=== PATIENT | female | born 1990 | race Two or more races ===

== ENCOUNTER 2018-01-31 14:04 | Emergency (ER) | payer OTHER ==
[~2018-01-31] VITALS: Ht 165.1 cm; Wt 63.0 kg
[2018-01-31] MEDS ORDERED: ACETAMINOPHEN ES 500 MG TABLET PO ONE (16:00)
[2018-01-31] MEDS ORDERED: ALBUTEROL FS 2.5 MG/3 ML VIAL.NEB NEB ONE (16:00)
[2018-01-31] MEDS ORDERED: IPRATROPIUM NEB FS 0.5 MG/2.5 ML AMPUL.NEB NEB ONE (16:00)
[2018-01-31] MEDS ORDERED: IV NS 0.9% 1,000 ML BAG IV ONE (16:00)
[2018-01-31] MEDS ORDERED: ONDANSETRON HCL/PF 4 MG/2 ML VIAL IV ONE (16:30)
[2018-01-31] MEDS ORDERED: ALBUTEROL FS 2.5 MG/3 ML VIAL.NEB ONE (17:10)
[2018-01-31] MEDS ORDERED: IPRATROPIUM NEB FS 0.5 MG/2.5 ML AMPUL.NEB ONE (17:10)
[2018-01-31] MEDS ORDERED: ONDANSETRON HCL/PF 4 MG/2 ML VIAL ONE (17:43)
[2018-01-31] MEDS ORDERED: ACETAMINOPHEN ES 500 MG TABLET ONE (17:43)
--- NOTE | 2018-01-31 17:56 | NUR ---
27 Y/O FEMALE PLACED IN BED 4 C/O BODY ACHES. BREATING TREATMENT INITIATED. H/L 22G PLACED IN LEFT HAND. IVF STARTED. ZOFRAN AND TYLENOL GIVEN. CONTINUE TO MONITOR.
--- NOTE | 2018-01-31 18:51 | NUR ---
DX - INFLUENZA. ACI WITH RX GIVEN. PT DISCHARGED HOME TO FOLLOW UP WITH PMD.
[2018-01-31 18:53] VITALS: BP 104/72
== END 2018-01-31 18:55 | disposition home or self-care (01) ==
LOC: ER 14:05
DX: B34.9 Viral infection, unspecified (principal); E03.9 Hypothyroidism, unspecified
CPT/HCPCS: 94640; 96374; 99284; A4606; J2405; Z7610

== ENCOUNTER 2018-07-25 13:11 | Emergency (ER) | payer OTHER ==
[~2018-07-25] VITALS: Ht 167.6 cm; Wt 63.5 kg
--- NOTE | 2018-07-25 13:18 | NUR ---
BIB MOTHER FOR C/O FLU LIKE SYMPTOMS, "FEELING SICK, CONGESTION, COUGH", ALSO C/O CHILLS. TO ER BED 11, HOOKED TO MONITOR, COOLING MEASURES DONE, AWAITING MD BELTRE.
--- NOTE | 2018-07-25 13:32 | NUR ---
PAYAL YU AT BEDSIDE
[2018-07-25 13:58] LABS: BASOPHILS % (AUTO) 0.1 % (0.0-2.0); EOSINOPHILS % (AUTO) 0.3 % (0.0-6.0); HEMATOCRIT 36 % (33-45); HEMOGLOBIN 12.4 g/dL (11.5-14.8); LYMPHOCYTES # (AUTO) 0.7 /CMM (0.8-4.8); LYMPHOCYTES % (AUTO) 5.5 % (20.0-44.0); MEAN CORPUSCULAR HGB CONC 34 g/dl (31.0-36.0); MEAN CORPUSCULAR VOLUME 89 fL (82-100); MONOCYTES % (AUTO) 7.2 % (2.0-12.0); NEUTROPHILS # (AUTO) 11.6 /CMM (1.8-8.9); NEUTROPHILS % (AUTO) 86.9 % (43.0-81.0); PLATELET COUNT (AUTO) 221 /CMM (150-450); RED BLOOD CELL COUNT(AUTO) 4.03 MIL/uL (4.0-5.2); WHITE BLOOD COUNT (AUTO) 13.4 K/uL (4.3-11.0)
[2018-07-25] MEDS ORDERED: IV NS 0.9% 1,000 ML BAG IV ONE (14:00)
[2018-07-25] MEDS ORDERED: KETOROLAC TROMETHAMINE INJ 30 MG/ML VIAL IM ONE (14:00)
[2018-07-25] MEDS ORDERED: ACETAMINOPHEN ES 500 MG TABLET PO ONE (14:00)
[2018-07-25 14:08] LABS: CALCIUM, SERUM 8.4 mg/dL (8.5-10.1); CREATININE 1.1 mg/dL (0.6-1.3); POTASSIUM 3.5 mmol/L (3.5-5.1)
[2018-07-25] MEDS ORDERED: KETOROLAC TROMETHAMINE 15 MG/ML VIAL ONE (14:08)
[2018-07-25] MEDS ORDERED: ACETAMINOPHEN ES 500 MG TABLET ONE (14:08)
--- NOTE | 2018-07-25 14:28 | NUR ---
PT IN BED, AWAKE, HOOKED TO MONITOR. KEPT SAFE AND COMFORTABLE.
--- NOTE | 2018-07-25 15:30 | NUR ---
PT IN BED, ON IVPB ROCEPHIN, TOLERATING WELL, NO ASE NOTED, HOOKED TO MONITOR, VSS, KEPT SAFE AND COMFORTABLE.
[2018-07-25 15:53] LABS: APPEARANCE,URINE SL CLOUDY (CLEAR); BILIRUBIN,URINE NEGATIVE (NEGATIVE); BLOOD, URINE TRACE Ery/uL (NEGATIVE); COLOR,URINE AMBER (YELLOW); KETONES,URINE 2+ (NEGATIVE); LEUKOCYTE ESTERASE ,URINE 1+ (NEGATIVE); NITRITE, URINE NEGATIVE (NEGATIVE); PH,URINE 5.5 (5.0-8.0); PROTEIN,URINE 2+ mg/dl (NEGATIVE); UGLUCOSE NEGATIVE (NEGATIVE); UROBILINOGEN,URINE 0.2 EU/dL (0.2)
[2018-07-25 15:58] LABS: BACTERIA,URINE 1+ /HPF (None Seen); RBC,URINE 0-2 /HPF (0-2); SQUAMOUS EPITHELIAL CELL,UR Few /HPF (None Seen); WBC,URINE 21-50 /HPF (0-3)
[2018-07-25] MEDS ORDERED: CEFTRIAXONE 1GM BAG (ER ONLY) 50 ML IV ONE ×2 (16:00→16:11)
[2018-07-25] MEDS ORDERED: AZITHROMYCIN 500 MG in IV D5W 250 ML IV ONE (16:00)
[2018-07-25] MEDS ORDERED: AZITHROMYCIN 500 MG VIAL ONE (16:11)
[2018-07-25] MEDS ORDERED: LEVO137T2 PO (16:34)
[2018-07-25] MEDS ORDERED: HYDR-3802 PO (16:34)
--- NOTE | 2018-07-25 16:58 | NUR ---
PT IN BED, ON IVPB AZITHROMYCIN 500MG, TOLERATING WELL, NO ASE NOTED, HOOKED TO MONITOR, VSS, WILL CONTINUE TO MONITOR, KEPT SAFE AND COMFORTABLE.
--- NOTE | 2018-07-25 17:46 | NUR ---
IV removed. Catheter intact and site benign. Pressure and 4x4 applied to site. No bleeding noted.Patient discharged to home in stable condition. Written and verbal after care instructions given. Patient verbalizes understanding of instruction.
[2018-07-25 17:49] VITALS: BP 110/59
== END 2018-07-25 17:50 | disposition home or self-care (01) ==
LOC: ER 13:14
DX: J18.9 Pneumonia, unspecified organism (principal); E27.40 Unspecified adrenocortical insufficiency; N39.0 Urinary tract infection, site not specified; R11.10 Vomiting, unspecified; E03.9 Hypothyroidism, unspecified; Z79.899 Other long term (current) drug therapy
CPT/HCPCS: 36415; 71045; 80048; 81001; 83605; 84703; 85025; 87040; 87086; 87804 ×2; 96361; 96365; 96367; 96372; 99284; J0456; J0696; J1885; J7030; J7060 ×2; 81000-TC; 87400

== ENCOUNTER 2019-05-27 14:10 | Emergency (ER) | payer OTHER ==
[~2019-05-27] VITALS: Ht 165.1 cm; Wt 63.5 kg
[~2019-05-27 14:10] MED LIST: HYDR-3802 PO; LEVO137T2 PO
[2019-05-27 14:29] VITALS: BP 113/77
[2019-05-27] MEDS ORDERED: LIDOCAINE 1%-EPI 1:100,000 50 ML VIAL IJ ONE (15:00)
[2019-05-27] MEDS ORDERED: TDAP [DIPH/PERTUSSIS/TET] 0.5 ML VIAL IM ONE ×2 (15:00→16:17)
[2019-05-27] MEDS ORDERED: LIDOCAINE 1%-EPI 1:100,000 20 ML VIAL ONE (15:05)
--- NOTE | 2019-05-27 15:55 | NUR ---
Patient awake alert prep for incision agrees refused tetanus shot @ this time explained importance
--- NOTE | 2019-05-27 16:40 | NUR ---
DC home instruction given ,vijaya to see MD in 2 days to check wound to her left hand ,
--- NOTE | 2019-05-27 16:43 | NUR ---
Patient discharged to home in stable condition. Written and verbal after care instructions given. Patient verbalizes understanding of instruction.
--- NOTE | 2019-05-27 16:44 | NUR ---
DRssing applied by EMT Allen YOUNG hand noted able to moved left hand no pulse ,no pain ,no skin discoloration
== END 2019-05-27 16:47 | disposition home or self-care (01) ==
LOC: ER 14:17
DX: S61.412A Laceration without foreign body of left hand, initial encounter (principal); E03.9 Hypothyroidism, unspecified; Z79.899 Other long term (current) drug therapy; W01.0XXA Fall on same level from slipping, tripping and stumbling without subsequent striking against object, initial encounter; Y93.89 Activity, other specified; Y92.89 Other specified places as the place of occurrence of the external cause; Y99.8 Other external cause status
CPT/HCPCS: 12001; 73130; 90471; 90715; 99284; A6403 ×2; J3490 ×2

== ENCOUNTER 2019-06-05 11:11 | Emergency (ER) | payer OTHER ==
[~2019-06-05] VITALS: Ht 162.6 cm; Wt 64.4 kg
[2019-06-05 11:33] VITALS: BP 115/71
--- NOTE | 2019-06-05 12:37 | NUR ---
Patient eloped from facility. ER MD notified.
== END 2019-06-05 16:05 | disposition left against medical advice (07) ==
LOC: ER 11:17
DX: Z53.21 Procedure and treatment not carried out due to patient leaving prior to being seen by health care provider (principal); Z48.02 Encounter for removal of sutures; E03.9 Hypothyroidism, unspecified

== ENCOUNTER 2019-06-10 16:59 | Emergency (ER) | payer OTHER ==
[~2019-06-10] VITALS: Ht 162.6 cm; Wt 64.4 kg
[2019-06-10 17:05] VITALS: BP 100/61
--- NOTE | 2019-06-10 17:18 | NUR ---
Patient discharged to home in stable condition. Written and verbal after care instructions given. Patient verbalizes understanding of instruction.
== END 2019-06-10 17:19 | disposition home or self-care (01) ==
LOC: ER 16:59
DX: S61.412D Laceration without foreign body of left hand, subsequent encounter (principal); E03.9 Hypothyroidism, unspecified; Z79.899 Other long term (current) drug therapy; W26.0XXD Contact with knife, subsequent encounter

== ENCOUNTER 2021-10-29 18:35 | Emergency (ER) | payer MEDICAID, OTHER ==
[~2021-10-29] VITALS: Ht 165.1 cm; Wt 70.3 kg
[~2021-10-29 18:35] MED LIST changes: -HYDR-3802 PO; +HYDR-4316 PO
[2021-10-29 18:44] VITALS: BP 108/71
[2021-10-29] MEDS ORDERED: IBUPROFEN 600 MG TABLET ONE (18:56)
[2021-10-29] MEDS ORDERED: IBUPROFEN 600 MG TABLET PO ONE (19:00)
--- NOTE | 2021-10-29 19:05 | NUR ---
"Been feeling sick xcouple days. CHATMAN,cough,fever,chills"
--- NOTE | 2021-10-29 19:27 | NUR ---
PT REFUSED COVID & FLU SWAB; DR. ANETA DE LA FUENTE AWARE
[2021-10-29] MEDS ORDERED: IBUP-1957 PO (19:52)
== END 2021-10-29 22:15 | disposition home or self-care (01) ==
LOC: ER 18:39
DX: B34.9 Viral infection, unspecified (principal); E03.9 Hypothyroidism, unspecified; Z79.899 Other long term (current) drug therapy

== ENCOUNTER 2022-04-18 21:21 | Emergency (ER) | payer MEDICAID ==
[~2022-04-18] VITALS: Ht 165.1 cm; Wt 61.2 kg
[~2022-04-18 21:21] MED LIST changes: +IBUP-1957 PO
--- NOTE | 2022-04-18 22:20 | NUR ---
BIBSELF C/O COUGH FOR OVER TWO WEEKS
[2022-04-18 22:22] VITALS: BP 136/70
[2022-04-18] MEDS ORDERED: BENZ-13 PO (22:43)
--- NOTE | 2022-04-18 22:54 | NUR ---
Patient discharged to home in stable condition. RX Written and verbal after care instructions given. Patient verbalizes understanding of instruction.
== END 2022-04-18 22:58 | disposition home or self-care (01) ==
LOC: ER 21:26
DX: R05.9 Cough, unspecified (principal); E03.9 Hypothyroidism, unspecified; Z79.899 Other long term (current) drug therapy

== ENCOUNTER 2024-05-23 19:05 | Emergency (ER) | payer MEDICAID, OTHER ==
[~2024-05-23] VITALS: Ht 160 cm; Wt 65.3 kg
[~2024-05-23 19:05] MED LIST changes: +BENZ-13 PO
[2024-05-23 19:58] VITALS: BP 139/87; TEMP 98; O2SAT 100
[2024-05-23] MEDS ORDERED: KETOROLAC TROMETHAMINE 15 MG/ML VIAL ONE (20:22)
[2024-05-23] MEDS ORDERED: KETOROLAC TROMETHAMINE INJ 30 MG/ML VIAL ONE (20:28)
[2024-05-23] MEDS: KETOROLAC TROMETHAMINE 15 MG/ML VIAL IM ONE (20:33)
[2024-05-23] MEDS ORDERED: IBUP-1490 PO (20:56)
== END 2024-05-23 21:25 | disposition home or self-care (01) ==
LOC: ER 19:10
DX: M25.511 Pain in right shoulder (principal); E03.9 Hypothyroidism, unspecified; R20.0 Anesthesia of skin; R53.1 Weakness; Z79.1 Long term (current) use of non-steroidal anti-inflammatories (NSAID)
CPT/HCPCS: 99283; 96372; 73030; J1885 ×2